=== PATIENT | male | born 1955 | race Caucasian/White ===

== ENCOUNTER 2020-12-16 10:42 | Inpatient (IN) | payer MEDICARE, OTHER ==
[~2020-12-16] VITALS: Ht 182.9 cm; Wt 102.1 kg
[~2020-12-16 10:42] MED LIST: TERB250 PO
[2020-12-16 11:42] LABS: BASOPHILS ABSOLUTE AUTO 0.03 K/mm3 (0.00-0.23); BASOPHILS PERCENT AUTO 0 % (0-2); EOSINOPHILS ABSOLUTE AUTO 0.22 K/mm3 (0.00-0.68); EOSINOPHILS PERCENT AUTO 3 % (0-6); Hematocrit 44.4 % (37.0-53.0); IMMATURE GRAN ABSOLUTE AUTO 0.02 K/mm3 (0.00-0.10); IMMATURE GRAN PERCENT AUTO 0 % (0-1); LYMPHOCYTES ABSOLUTE AUTO 1.81 K/mm3 (0.84-5.20); LYMPHOCYTES PERCENT AUTO 21 % (21-46); MONOCYTES ABSOLUTE AUTO 0.67 K/mm3 (0.16-1.47); MONOCYTES PERCENT AUTO 8 % (4-13); Mean Corpuscular HGB 30.3 pg (26.0-34.0); Mean Corpuscular HGB Conc 33.8 g/dL (31.5-36.5); Mean Corpuscular Volume 90 fL (80-100); Mean Platelet Volume 8.7 fL (9.1-12.4); NEUTROPHILS PERCENT AUTO 68 % (41-73); Platelet Count 246 K/mm3 (150-400); RDW Coefficient Variation 13.2 % (11.7-14.2); Red Blood Cell Count 4.95 M/mm3 (4.30-5.90); White Blood Cell Count 8.65 K/mm3 (4.00-11.30)
[2020-12-16] MEDS ORDERED: CARV6.25 PO (11:47)
[2020-12-16] MEDS ORDERED: FINA5 PO (11:47)
[2020-12-16] MEDS ORDERED: TERA5 PO (11:48)
[2020-12-16] MEDS ORDERED: ELIQUIS5 M3 PO (11:48)
[2020-12-16] MEDS ORDERED: AMLODIPINE BESY10 MG PO (11:48)
[2020-12-16 11:55] LABS: Albumin, Blood 3.1 g/dL (3.4-5.0); Albumin/Globulin Ratio 0.8 (0.8-1.8); Bilirubin, Total 0.5 mg/dL (0.1-1.0); Bun/Creatinine Ratio 12.6 (12.0-20.0); Calcium, Blood 8.5 mg/dL (8.5-10.1); Creatinine, Blood 1.51 mg/dL (0.60-1.20); Globulin, Blood 3.9 g/dL (2.2-4.0); Potassium, Blood 3.3 mmol/L (3.5-5.5)
[2020-12-16] MEDS ORDERED: Aspirin EC81 MG PO (12:17)
[2020-12-16] MEDS ORDERED: ATOR40TA PO (12:18)
[2020-12-16] MEDS ORDERED: DOCU100 PO (12:18)
[2020-12-16 12:43] LABS: International Normalized Ratio 1.11; Prothrombin Time Results 11.9 Sec (9.7-11.5)
[2020-12-16] MEDS ORDERED: Lisinopril2.5 MG PO (15:50)
[2020-12-16] MEDS ORDERED: NITR.4SL SL (15:52)
[2020-12-16] MEDS ORDERED: TERB250 PO (15:53)
--- NOTE | 2020-12-16 16:10 | NUR ---
PATIENT ARRIVED TO UNIT FROM ED VIA GURNEY, ABLE TO TRANSFER SELF TO BED. PATIENT ALERT AND ORIENTED, ELISA PAIN/DISCOMFORT, DENIES CHEST PAIN/PRESSURE. TELEMETRY APPLIED, IN A FIB WITH A RATE 70S-80S. [employer] SUPERVISOR CALLED THIS RN TO CHECK ON PATIENT URGENTLY, THIS RN ENTERED ROOM TO FIND PATIENT SLEEPING. THIS RN WOKE PATIENT UP WHO DENIES DISCOMFORT, CHEST PAIN/PRESSURE, DENIED DIZZINESS. PATIENT HAD A 6+ SECOND PAUSE. BP STABLE. ZOLL PLACED AT BEDSIDE, PADS PLACED ON PATIENT BUT NOT YET ATTACHED TO ZOLL. THIS RN NOTIFIED DR. SAVAGE WHO WILL COME TO SEE PATIENT AT BEDSIDE. [facility].
[2020-12-16 16:18] LABS: SARS-Cov-2 (COVID-19) PCR, MMC NEGATIVE (NEGATIVE)
--- NOTE | 2020-12-16 19:45 | NUR ---
THE REST OF THIS SHIFT THE PATIENT CONTINUED TO HAVE AN ADDITIONAL PAUSE OF 4+ SECONDS, AND REMAINED IN A FIB THE REST OF SHIFT. HEART RATE WOULD DECREASE AT TIMES FROM AVERAGE RATE OF 70S-80S DOWN TO 30S-40S PER MANAGER SOURCING, THIS RN CHECKED ON PATIENT EACH TIME HEART RATE DECREASED OR WITH PAUSES, PATIENT APPEARED ASYMPTOMATIC, DENIED CHEST PAIN/PRESSURE OR DISCOMFORT OF ANY KIND. ZOLL REMAINS AT BEDSIDE.
[2020-12-17 01:56] LABS: BASOPHILS ABSOLUTE AUTO 0.03 K/mm3 (0.00-0.23); BASOPHILS PERCENT AUTO 0 % (0-2); EOSINOPHILS PERCENT AUTO 2 % (0-6); Hematocrit 39.4 % (37.0-53.0); Hemoglobin 13.7 g/dL (13.5-17.5); IMMATURE GRAN ABSOLUTE AUTO 0.01 K/mm3 (0.00-0.10); IMMATURE GRAN PERCENT AUTO 0 % (0-1); LYMPHOCYTES ABSOLUTE AUTO 1.86 K/mm3 (0.84-5.20); LYMPHOCYTES PERCENT AUTO 22 % (21-46); MONOCYTES ABSOLUTE AUTO 0.75 K/mm3 (0.16-1.47); MONOCYTES PERCENT AUTO 9 % (4-13); Mean Corpuscular HGB 30.6 pg (26.0-34.0); Mean Corpuscular HGB Conc 34.8 g/dL (31.5-36.5); Mean Corpuscular Volume 88 fL (80-100); Mean Platelet Volume 8.5 fL (9.1-12.4); NEUTROPHILS ABSOLUTE AUTO 5.63 K/mm3 (1.96-9.15); NEUTROPHILS PERCENT AUTO 66 % (41-73); Platelet Count 247 K/mm3 (150-400); RDW Coefficient Variation 13.2 % (11.7-14.2); RDW Standard Deviation 42.5 fL (35.1-46.3); Red Blood Cell Count 4.48 M/mm3 (4.30-5.90); White Blood Cell Count 8.48 K/mm3 (4.00-11.30)
[2020-12-17 02:19] LABS: Albumin, Blood 2.8 g/dL (3.4-5.0); Albumin/Globulin Ratio 0.8 (0.8-1.8); Bilirubin, Total 0.2 mg/dL (0.1-1.0); Bun/Creatinine Ratio 13.8 (12.0-20.0); Creatinine, Blood 1.52 mg/dL (0.60-1.20); Globulin, Blood 3.4 g/dL (2.2-4.0); Potassium, Blood 3.4 mmol/L (3.5-5.5); Total Protein, Blood 6.2 g/dL (6.4-8.2)
--- NOTE | 2020-12-17 05:52 | NUR ---
SHIFT SUMMARY PT AXO. ON RA. PT IN AFIB 80'S WITH OCCASIONAL PAUSES. ITS NOTED THAT THESE PAUSES AND BRADYCARDIC EVENTS HAVE DECREASED SIGNIFICANTLY SINCE CARVEDILOL DC'D ON DAY SHIFT. ONLY 2 PAUSES >3-4SECONDS NOTED THIS SHIFT VS MULTIPLE ON DAY SHIFT. L SIDED DEFICIT REMAINING FROM PREVIOUS CVA NOTED BUT NO HINDRANCE NOTED. PADS HAVE BEEN IN PLACE T/O NIGHT DUE TO WORRY OF PAUSES IN DAY SHIFT. ZOLL AT BEDSIDE. PT HAS BEEN UP AND OOB TO PEE IN URINAL AT BEDSIDE BUT HAS PREDOMINANTLY REMAINED IN BED. OTHERWISE, PT HAS BEEN RESTING T/O SHIFT.
--- NOTE | 2020-12-17 17:00 | NUR ---
SHIFT SUMMARY PATIENT WAS AGITATED AT START OF SHIFT, COMPLAINED OUT THE POOR QUALITY OF FOOD ON THE BREAKFAST TRAY AND PROCEEDED TO THROW ITEMS ACROSS THE ROOM TOWARD THE GARBAGE CAN. THIS RN ASKED THAT THE PT NOT THROW THINGS, OFFERED OTHER SNACKS AVAILABLE FROM THE PANTRY. PATIENT APPEARED TO CALM DOWN AT THIS SUGGESTION. O2 SATURATION STABLE ON ROOM AIR, PATIENT ALERT AND ORIENTED T/O SHIFT. PATIENT WAS ABLE TO USE URINAL AT BEDSIDE. PT REMAINED IN A FIB ON TELEMETRY, HAD SEVERAL PAUSES TODAY, TELE STRIPS PRINTED AND PLACED ON CHART. PT WAS ASYMPTOMATIC. PT NAPPED T/O SHIFT. STATED HE FELT BETTER AFTER SLEEPING SEVERAL HOURS IN THE AFTERNOON. IV FLUIDS CONTINUED PER EMAR.
[2020-12-18 04:00] LABS: Hematocrit 43.5 % (37.0-53.0); Hemoglobin 14.9 g/dL (13.5-17.5); Mean Corpuscular HGB 30.3 pg (26.0-34.0); Mean Corpuscular HGB Conc 34.3 g/dL (31.5-36.5); Mean Corpuscular Volume 88 fL (80-100); Mean Platelet Volume 8.8 fL (9.1-12.4); Platelet Count 260 K/mm3 (150-400); RDW Coefficient Variation 13.2 % (11.7-14.2); Red Blood Cell Count 4.92 M/mm3 (4.30-5.90); White Blood Cell Count 9.19 K/mm3 (4.00-11.30)
[2020-12-18 04:31] LABS: Albumin, Blood 3.1 g/dL (3.4-5.0); Anion Gap 6 mmol/L (6-16); Blood Urea Nitrogen 16 mg/dL (8-24); Bun/Creatinine Ratio 12.2 (12.0-20.0); CO2, Blood 26 mmol/L (21-32); Calcium, Blood 8.4 mg/dL (8.5-10.1); Chloride, Blood 106 mmol/L (98-108); Creatinine, Blood 1.31 mg/dL (0.60-1.20); Free Thyroxine 1.13 ng/dL (0.70-1.60); Glomerular Filtration Rate 58 (60-); Glucose, Blood 103 mg/dL (70-99); Phosphorus, Blood 2.8 mg/dL (2.5-4.9); Potassium, Blood 3.2 mmol/L (3.5-5.5); Sodium, Blood 138 mmol/L (136-145); Thyroid Stimulating Hormone 0.345 uIU/mL (0.360-4.800)
--- NOTE | 2020-12-18 05:44 | NUR ---
SHIFT SUMMARY NO ACUTE CHANGES THIS SHIFT. VSS. PT IS CONTINUING TO HAVE PAUSES T/O SHIFT BUT NONE HAVE BEEN>6 SECONDS TO THIS RN'S KNOWLEDGE. PT CONTINUES TO BE ASYMPTOMATIC TO THESE EVENTS. ZOLL REMAINS AT BEDSIDE. PT BASE HR IN 70'S AFIB. PT ON RA. HAS BEEN UP TO BATHROOM A FEW TIMES THIS SHIFT BUTOTHERWISE HAS BEEN RESTING THIS SHIFT. USES CALL LIGHT WHEN NEEDING STAFF.
--- NOTE | 2020-12-18 18:02 | NUR ---
SHIFT SUMMARY PT HAS BEEN LETHARGIC TODAY, EASY TO AROUSE BUT HAS SLEPT ALL DAY. PT HAS IV FLUIDS RUNNING AT THIS TIME. PT HAS BEEN SBA TO THE BATHROOM THROUGHOUT THE DAY; HE CALLS APPROPRIATELY. PT HAS HAD SEVERAL PAUSES AND CONTINUES TO BE IN AFIB; CARDIOLOGY WOULD LIKE A PHONE CALL IF THE PAUSE IN AFIB IS 10 SECONDS OR LONGER. PLAN IS FOR A PACER TOMORROW. PT WAS ABLE TO VISIT WITH HIS DAUGHTER TODAY. VS STABLE, PT ON RA AND DENIES CP AND SOB
--- NOTE | 2020-12-19 06:11 | NUR ---
SHIFT SUMMARY PATIENT SLEEPING HARD MOST OF SHIFT. A&OX4. UP WITH ONE TO BATHROOM IS A LITTLE UNSTEADY. VSS. AFIB IN THE 70'S-80'S ALL SHIFT WITH A FEW PAUSES ALL 5 SEC OR LESS. ASYMPTOMATIC. ON RA. NO CP OR PRESSURE.NPO SINCE 0000 FOR PROCEDURE IN AM. NO PAIN OR DISTRESS NOTED UPON ASSESSMENT. URGENCY AND INCREASED FREQUENCY NOTED WITH URINATION. REFUSED TO PEE IN URINAL FOR ACCURATE MESAUSEMENTS. FALL PRECAUTIONS IN PLACE. WILL CONTINUE TO MONITOR UNTIL REPORT GIVEN TO BRUCE MARINELLI.
[2020-12-19 09:19] LABS: Anion Gap 5 mmol/L (6-16); Blood Urea Nitrogen 15 mg/dL (8-24); Bun/Creatinine Ratio 11.3 (12.0-20.0); CO2, Blood 25 mmol/L (21-32); Calcium, Blood 8.7 mg/dL (8.5-10.1); Chloride, Blood 111 mmol/L (98-108); Creatinine, Blood 1.33 mg/dL (0.60-1.20); Glomerular Filtration Rate 57 (60-); Glucose, Blood 143 mg/dL (70-99); Magnesium, Blood 1.7 mg/dL (1.6-2.4); Phosphorus, Blood 2.4 mg/dL (2.5-4.9); Potassium, Blood 3.3 mmol/L (3.5-5.5); Sodium, Blood 141 mmol/L (136-145)
--- NOTE | 2020-12-19 15:57 | NUR ---
HEART CENTER PT LEFT FOR HEART CENTER PROCEDURE AT APPROXIMATELY 1510. PT IS TO HAVE A PACEMAKER PLACED TODAY.
--- NOTE | 2020-12-19 18:28 | NUR ---
SHIFT SUMMARY PT ARRIVED BACK FROM HEART CENTER AT APPROXIMATELY 1710 AFTER HAVING A SINGLE CHAMBER PACER PLACED. PT DENIES CHEST PAIN, SOB AND SORENESS. A SLING IS IN PLACE, THE PRESSURE DRESSING IS C/D/I. PT HAS IV FLUIDS AND HIS 1ST ANTIBIOTIC DOSE RUNNING AND THE CHEST X-RAY HAS BEEN COMPLETED. OTHER THAN THE PROCEDURE PT HAS BEEN SLEEPING ALL DAY, PT NEEDS SBA TO THE BATHROOM, HE IS SLIGHTLY UNSTEADY ON HIS FEET DUE TO HX OF CVA THAT GAVE LEFT DEFICIT AND HE HAS BEEN IMPULSIVE TO GET TO THE BATHROOM. PT IS HAVING DINNER AT THIS TIME AND RESTING IN BED. VS STABLE, PT REMAINS ON RA
[2020-12-20 04:39] LABS: Hematocrit 41.7 % (37.0-53.0); Mean Corpuscular HGB 29.9 pg (26.0-34.0); Mean Corpuscular HGB Conc 33.6 g/dL (31.5-36.5); Mean Corpuscular Volume 89 fL (80-100); Mean Platelet Volume 9.1 fL (9.1-12.4); Platelet Count 269 K/mm3 (150-400); RDW Coefficient Variation 13.5 % (11.7-14.2); RDW Standard Deviation 44.1 fL (35.1-46.3); Red Blood Cell Count 4.68 M/mm3 (4.30-5.90); White Blood Cell Count 8.83 K/mm3 (4.00-11.30)
[2020-12-20 05:02] LABS: Albumin, Blood 2.9 g/dL (3.4-5.0); Anion Gap 5 mmol/L (6-16); Blood Urea Nitrogen 17 mg/dL (8-24); Bun/Creatinine Ratio 12.1 (12.0-20.0); CO2, Blood 26 mmol/L (21-32); Calcium, Blood 8.3 mg/dL (8.5-10.1); Chloride, Blood 108 mmol/L (98-108); Glomerular Filtration Rate 54 (60-); Glucose, Blood 89 mg/dL (70-99); Phosphorus, Blood 3.1 mg/dL (2.5-4.9); Potassium, Blood 3.6 mmol/L (3.5-5.5); Sodium, Blood 139 mmol/L (136-145)
--- NOTE | 2020-12-20 05:41 | NUR ---
SHIFT SUMMARY PATIENT IS ALERT AND ORIENTED X4. SBA TO THE BATHROOM. PT WORE SLING ALL NIGHT. REINFORCED PRESSURE DRESSING BECAUSE BANDAGE WAS NOT STICKING. MEDICATED FOR LEFT SHOULDER PAIN PER EMAR. 02 SATS 95% ON RA. NO PAUSES OVERNIGHT, VSS, NO ACUTE CHANGES. CALL LIGHT IN REACH.
[2020-12-20] MEDS ORDERED: CEPH500 PO (11:26)
[2020-12-20] MEDS ORDERED: HYDRA25 PO (11:26)
[2020-12-20] MEDS ORDERED: OXYC5 PO (11:29)
[2020-12-20] MEDS ORDERED: PANT40 PO (11:30)
--- NOTE | 2020-12-20 14:00 | NUR ---
Met pt. in bed relaxed and resting pt. ie doing much better offered some prayers for pt.
--- NOTE | 2020-12-20 17:25 | NUR ---
PT VSS, COLLINS, DISCHARGE ORDERS RECEIVED AND IV'S REMOVED AT 1400; TELEMETRY REMOVED AT 1412; DISCHARGE TEACHING PROVIDED AT 1431; PT LEFT UNIT AT 1628 VIA WHEELCHAIR ACCOMPANIED BY EMS TRANSPORT WITH PERSONAL EFFECTS AND NO OXYGEN THERAPY , TELEMETRY, OR INFUSIONS; PT DENIED ADDITIONAL CONCERNS AT THIS TIME
== END 2020-12-20 16:24 | disposition hospice, inpatient (51) | DRG 243 ==
LOC: ER 10:42 → PCU 11:48
PROVIDERS: Emergency Medicine; Internal Medicine; ADMIT Internal Medicine
PROC: 0JH604Z Insertion of Pacemaker, Single Chamber into Chest Subcutaneous Tissue and Fascia, Open Approach (ICD-10-PCS; principal; 2020-12-19)
PROC: 02HK3JZ Insertion of Pacemaker Lead into Right Ventricle, Percutaneous Approach (ICD-10-PCS; 2020-12-19)
DX: I49.5 Sick sinus syndrome (principal); N17.9 Acute kidney failure, unspecified; I48.20 Chronic atrial fibrillation, unspecified; I69.354 Hemiplegia and hemiparesis following cerebral infarction affecting left non-dominant side; E86.0 Dehydration; Z20.822 Contact with and (suspected) exposure to COVID-19; N40.0 Benign prostatic hyperplasia without lower urinary tract symptoms; N18.30 Chronic kidney disease, stage 3 unspecified; I25.5 Ischemic cardiomyopathy; E05.80 Other thyrotoxicosis without thyrotoxic crisis or storm; I12.9 Hypertensive chronic kidney disease with stage 1 through stage 4 chronic kidney disease, or unspecified chronic kidney disease; E87.6 Hypokalemia; F15.10 Other stimulant abuse, uncomplicated; I25.10 Atherosclerotic heart disease of native coronary artery without angina pectoris; I25.2 Old myocardial infarction; Z79.01 Long term (current) use of anticoagulants; Z79.899 Other long term (current) drug therapy; Z79.82 Long term (current) use of aspirin; Z95.5 Presence of coronary angioplasty implant and graft; Z71.51 Drug abuse counseling and surveillance of drug abuser
CPT/HCPCS: 33207; 33227; 36415; 71045; 76937; 80053; 80069; 83735; 84439; 84443; 84484; 85025; 85027; 85610; 85730; 93005; 93010; 93306; 94760; 99152; 99153; 99285-25; A9270; C1781; C1786; C1894; C1898; J0690; J1644; J1650; J2250; J3010; J7030; J7040; Q9967; U0004